=== PATIENT | female | born 1960 | race Caucasian/White ===

== ENCOUNTER 2016-04-23 03:13 | Emergency (ER) | payer MEDICARE, OTHER, MEDICAID ==
[2016-04-23] MEDS ORDERED: DILAUDID 1 MG/ML AMP ONE ×2 (04:30→06:49)
[2016-04-23] MEDS ORDERED: ONDANSETRON 4 MG VIAL ONE ×2 (04:30→04:47)
[2016-04-23] MEDS ORDERED: SODIUM CHLORIDE 0.9% 1,000 ML ONE (04:30)
[2016-04-23] MEDS ORDERED: SODIUM CHLORIDE 0.9% 100 ML IV ONE (06:08)
[2016-04-23] MEDS ORDERED: PIPER/TAZO 3.375 GM PYXIS ONE (06:08)
[2016-04-23] MEDS ORDERED: PROMETHAZINE 25 MG/ML VIAL ONE (06:48)
[2016-04-23] MEDS ORDERED: SODIUM CHLORIDE 0.9% 50 ML IV ONE (06:49)
== END 2016-04-23 07:15 | disposition other institution (70) ==
LOC: ER 03:13
CPT/HCPCS: 36415 ×2; 74176 ×2; 80053 ×2; 81001 ×2; 83690 ×2; 85025 ×2; 87088 ×2; 96361 ×2; 96365 ×2; 96375 ×2; 96376 ×2; 99284; J1170; J2405; J2550